=== PATIENT | male | born 1965 | race Caucasian/White ===

== ENCOUNTER 2025-10-15 08:36 | Inpatient (IN) | payer MEDICAID, OTHER ==
[~2025-10-15] VITALS: Ht 172.7 cm; Wt 84.8 kg
[2025-10-15 08:44] VITALS: O2SAT 98
[2025-10-15 10:02] LABS: CREATININE 1.5 mg/dL (0.6-1.3)
[2025-10-15 10:03] LABS: UREA NITROGEN BLOOD 24.0 mg/dL (9-23)
[2025-10-15 10:09] LABS: BASOPHILS % 0.2 % (0.0-2.0); EOSINOPHILS % 0.2 % (0.0-5.0); HEMATOCRIT. 42.1 % (42.0-52.0); HEMOGLOBIN. 13.9 g/dL (14.0-18.0); LYMPHOCYTES % 8.4 % (20.0-50.0); MEAN PLATELET VOLUME 8.6 fl (7.4-10.4); MONOCYTES % 7.6 % (2.0-8.0); NEUTROPHILS % 83.6 % (40.0-76.0); PLATELET 214 x1000/uL (130-400); RED BLOOD CELL COUNT 4.85 mill/uL (4.7-6.1); RED CELL DISTRIBUTION WIDTH 13.9 % (11.6-14.6)
[2025-10-15] MEDS ORDERED: AMPICILLIN SOD/SULBACTAM NA 3 G in SODIUM CHLORIDE 0.9% 100 ML IV STA (10:20)
[2025-10-15] MEDS: SODIUM CHLORIDE 0.9% (SEPSIS BOLUS) IV ONE (10:56)
[2025-10-15] MEDS: AMPICILLIN SOD/SULBACTAM NA 3 G in SODIUM CHLORIDE 0.9% 100 ML IV NR (11:20)
[2025-10-15] MEDS: VANCOMYCIN 1G PREMIX 200 ML IV ONE (12:50)
[2025-10-15 16:00] VITALS: BP 155/84; PULSE 104; RESP 20; TEMP 38.5; O2SAT 97
[2025-10-15] MEDS ORDERED: DEXTROSE 50% WATER 50ML SYRINGE IV PRN (17:00)
[2025-10-15] MEDS: BLOOD SUGAR DIAGNOSTIC STRIP TEST SCH (17:00)
[2025-10-15] MEDS ORDERED: IPRATROPIUM/ALBUTEROL 0.5-3(2.5)MG/3ML NEB HHN PRN (17:00)
[2025-10-15] MEDS: INSULIN LISPRO 100 UNITS/ML SUBCUT SCH (17:30)
[2025-10-15 20:00] VITALS: BP 143/85; PULSE 101; RESP 18; TEMP 36.9; O2SAT 97
[2025-10-15] MEDS: VANCOMYCIN 750MG PREMIX 150 ML IV SCH (20:30)
[2025-10-15] MEDS: HYDROCODONE/ACETAMINOPHEN 5/325MG TABLET PO PRN (22:59)
[2025-10-15] MEDS: ZOLPIDEM TARTRATE 5MG TABLET PO PRN (22:59)
[2025-10-16] VITALS (7 sets, daily range): BP systolic 112–139; BP diastolic 70–84; PULSE 77–101; RESP 13–19; TEMP 36.1–36.9184; O2SAT 95–99
[2025-10-16] MEDS: PIPERACILLIN/TAZO 3.375G/50ML 50 ML IV SCH (01:46)
[2025-10-16 08:04] LABS: CREATININE 1.4 mg/dL (0.6-1.3)
[2025-10-16 08:05] LABS: UREA NITROGEN BLOOD 19.0 mg/dL (9-23)
[2025-10-16 08:16] LABS: BASOPHILS % 0.3 % (0.0-2.0); EOSINOPHILS % 1.0 % (0.0-5.0); HEMATOCRIT. 37.7 % (42.0-52.0); HEMOGLOBIN. 12.5 g/dL (14.0-18.0); LYMPHOCYTES % 13.0 % (20.0-50.0); MEAN PLATELET VOLUME 8.7 fl (7.4-10.4); MONOCYTES % 8.7 % (2.0-8.0); NEUTROPHILS % 77.0 % (40.0-76.0); PLATELET 189 x1000/uL (130-400); RED BLOOD CELL COUNT 4.36 mill/uL (4.7-6.1); RED CELL DISTRIBUTION WIDTH 13.6 % (11.6-14.6)
[2025-10-16] MEDS: ONDANSETRON HCL 4MG/2ML INJ IV PRN (08:42)
[2025-10-16 10:48] LABS: CLARITY URINE CLEAR (CLEAR); COLOR URINE YELLOW (YELLOW); GLUCOSE URINE 3+ (NEGATIVE); KETONES URINE 1+ (NEGATIVE); LEUKOCYTE ESTERASE URINE NEGATIVE (NEGATIVE); NITRITE URINE NEGATIVE (NEGATIVE); OCCULT BLOOD URINE NEGATIVE (NEGATIVE); PH URINE 5.0 (4.5-8.0); PROTEIN URINE 2+ (NEGATIVE); SPECIFIC GRAVITY URINE 1.034 (1.005-1.030); UROBILINOGEN URINE 0.2 E.U./dL (0.2-1.0)
[2025-10-16 11:00] LABS: *AMPHETAMINES SCREEN URINE NEGATIVE (NEGATIVE); *BARBITURATES SCREEN URINE NEGATIVE (NEGATIVE); *BENZODIAZEPINES SCREEN URINE NEGATIVE (NEGATIVE); *COCAINE SCREEN URINE NEGATIVE (NEGATIVE); METHADONE URINE SCREEN NEGATIVE (NEGATIVE)
[2025-10-16 11:01] LABS: CANNABINOID URINE SCREEN NEGATIVE (NEGATIVE); ECSTASY MDMA SCREEN URINE NEGATIVE (NEGATIVE); OPIATES URINE SCREEN PRESUMPTIVE POSITIVE (NEGATIVE); PHENCYCLIDINE URINE SCREEN NEGATIVE (NEGATIVE)
[2025-10-16 11:09] LABS: RBC URINE 0-2 /hpf (0-2)
[2025-10-16 11:10] LABS: SQUAMOUS EPITHELIAL CELL URINE NONE SEEN /lpf (RARE/1+)
[2025-10-16 11:12] LABS: BACTERIA URINE TRACE; WBC URINE NONE SEEN /hpf (0-2)
[2025-10-16] MEDS: INSULIN GLARGINE 100 UNITS/ML SUBCUT SCH (11:54)
[2025-10-16] MEDS: ENOXAPARIN 40MG/0.4ML SYR SUBCUT SCH (12:58)
[2025-10-16] MEDS: VANCOMYCIN 750MG PREMIX 150 ML IV SCH (20:26)
[2025-10-16] MEDS ORDERED: NALOXONE HCL 0.4MG/ML VIAL IV PRN (23:45)
[2025-10-17] VITALS: BP 142/75; PULSE 81; RESP 18; TEMP 36.2; O2SAT 94
[2025-10-17 04:00] VITALS: BP 137/77; PULSE 85; RESP 18; TEMP 36.2; O2SAT 94
[2025-10-17 08:00] VITALS: BP 149/88; PULSE 85; RESP 19; TEMP 36.4; O2SAT 97
[2025-10-17 08:23] LABS: CREATININE 1.1 mg/dL (0.6-1.3); UREA NITROGEN BLOOD 18 mg/dL (9-23)
[2025-10-17 08:24] LABS: PROTEIN TOTAL 6.0 g/dL (6.0-8.3)
[2025-10-17 08:25] LABS: ASPARTATE AMINOTRANSFERASE 17 IU/L (<34); BILIRUBIN DIRECT 0.1 mg/dL (<=3.0)
[2025-10-17 08:26] LABS: BASOPHILS % 0.3 % (0.0-2.0); BILIRUBIN TOTAL 0.5 mg/dL (0.1-1.0); EOSINOPHILS % 1.7 % (0.0-5.0); HEMATOCRIT. 37.8 % (42.0-52.0); HEMOGLOBIN. 12.7 g/dL (14.0-18.0); LYMPHOCYTES % 19.3 % (20.0-50.0); MEAN PLATELET VOLUME 8.4 fl (7.4-10.4); MONOCYTES % 8.3 % (2.0-8.0); NEUTROPHILS % 70.4 % (40.0-76.0); PHOSPHORUS 3.1 mg/dL (2.5-4.9); PLATELET 202 x1000/uL (130-400); RED BLOOD CELL COUNT 4.37 mill/uL (4.7-6.1); RED CELL DISTRIBUTION WIDTH 13.6 % (11.6-14.6)
[2025-10-17] MEDS: DOCUSATE SODIUM 100MG CAPSULE PO PRN (08:34)
[2025-10-17 12:00] VITALS: BP 143/84; PULSE 78; RESP 16; TEMP 36.7; O2SAT 97
[2025-10-17 16:00] VITALS: BP 134/82; PULSE 83; RESP 19; TEMP 36.4; O2SAT 97
[2025-10-17 20:00] VITALS: BP 138/80; PULSE 81; RESP 18; TEMP 36.6; O2SAT 96
[2025-10-17] MEDS: VANCOMYCIN 1G PREMIX 200 ML IV SCH (21:03)
[2025-10-18] VITALS: BP 140/80; PULSE 80; RESP 18; TEMP 36.7; O2SAT 98
[2025-10-18 04:00] VITALS: BP 142/79; PULSE 78; RESP 18; TEMP 36.6; O2SAT 97
[2025-10-18 08:00] VITALS: BP 130/76; PULSE 86; RESP 17; TEMP 36.2; O2SAT 94
[2025-10-18 11:19] LABS: BASOPHILS % 0.5 % (0.0-2.0); EOSINOPHILS % 1.4 % (0.0-5.0); HEMATOCRIT. 37.9 % (42.0-52.0); HEMOGLOBIN. 12.8 g/dL (14.0-18.0); LYMPHOCYTES % 17.9 % (20.0-50.0); MEAN PLATELET VOLUME 8.4 fl (7.4-10.4); MONOCYTES % 8.4 % (2.0-8.0); NEUTROPHILS % 71.8 % (40.0-76.0); PLATELET 240 x1000/uL (130-400); RED BLOOD CELL COUNT 4.44 mill/uL (4.7-6.1); RED CELL DISTRIBUTION WIDTH 13.6 % (11.6-14.6)
[2025-10-18 12:00] VITALS: BP 135/85; PULSE 81; RESP 18; TEMP 36.9; O2SAT 98
[2025-10-18 12:04] LABS: CREATININE 1.2 mg/dL (0.6-1.3); UREA NITROGEN BLOOD 15 mg/dL (9-23)
[2025-10-18 12:05] LABS: PROTEIN TOTAL 6.0 g/dL (6.0-8.3)
[2025-10-18 12:06] LABS: ASPARTATE AMINOTRANSFERASE 14 IU/L (<34); BILIRUBIN DIRECT 0.1 mg/dL (<=3.0); PHOSPHORUS 3.9 mg/dL (2.5-4.9)
[2025-10-18 12:07] LABS: BILIRUBIN TOTAL 0.5 mg/dL (0.1-1.0)
[2025-10-18 16:00] VITALS: BP 132/82; PULSE 79; RESP 17; TEMP 36.7; O2SAT 97
[2025-10-18 20:00] VITALS: BP 127/78; PULSE 76; RESP 18; TEMP 36.8; O2SAT 96
[2025-10-19] VITALS (7 sets, daily range): BP systolic 122–148; BP diastolic 72–86; PULSE 71–85; RESP 16–19; TEMP 36.4–38.3; O2SAT 97–98
[2025-10-19 07:36] LABS: BASOPHILS % 0.5 % (0.0-2.0); EOSINOPHILS % 1.4 % (0.0-5.0); HEMATOCRIT. 42.0 % (42.0-52.0); HEMOGLOBIN. 14.2 g/dL (14.0-18.0); LYMPHOCYTES % 25.1 % (20.0-50.0); MEAN PLATELET VOLUME 8.2 fl (7.4-10.4); MONOCYTES % 9.3 % (2.0-8.0); NEUTROPHILS % 63.7 % (40.0-76.0); PLATELET 275 x1000/uL (130-400); RED BLOOD CELL COUNT 4.91 mill/uL (4.7-6.1); RED CELL DISTRIBUTION WIDTH 13.6 % (11.6-14.6)
[2025-10-19 07:38] LABS: CREATININE 1.2 mg/dL (0.6-1.3); UREA NITROGEN BLOOD 15 mg/dL (9-23)
[2025-10-19 07:41] LABS: PHOSPHORUS 3.8 mg/dL (2.5-4.9)
[2025-10-19] MEDS: ACETAMINOPHEN 325MG TABLET PO PRN ×2 (09:17→21:04)
[2025-10-20] VITALS: BP 136/88; PULSE 82; RESP 16; TEMP 36.7; O2SAT 97
[2025-10-20 04:00] VITALS: BP 135/78; PULSE 76; RESP 18; TEMP 37.6; O2SAT 98
[2025-10-20 08:10] VITALS: BP 137/74; PULSE 77; RESP 20; TEMP 36.6; O2SAT 97
[2025-10-20 10:35] LABS: BASOPHILS % 0.5 % (0.0-2.0); EOSINOPHILS % 1.6 % (0.0-5.0); HEMATOCRIT. 39.5 % (42.0-52.0); HEMOGLOBIN. 13.2 g/dL (14.0-18.0); LYMPHOCYTES % 18.1 % (20.0-50.0); MEAN PLATELET VOLUME 8.1 fl (7.4-10.4); MONOCYTES % 7.4 % (2.0-8.0); NEUTROPHILS % 72.4 % (40.0-76.0); PLATELET 269 x1000/uL (130-400); RED BLOOD CELL COUNT 4.60 mill/uL (4.7-6.1); RED CELL DISTRIBUTION WIDTH 13.5 % (11.6-14.6)
[2025-10-20 10:40] LABS: CREATININE 1.2 mg/dL (0.6-1.3); UREA NITROGEN BLOOD 14 mg/dL (9-23)
[2025-10-20 10:42] LABS: PHOSPHORUS 3.5 mg/dL (2.5-4.9)
[2025-10-20 13:30] VITALS: BP 129/72; PULSE 68; RESP 16; TEMP 36.6; O2SAT 100
[2025-10-20 16:00] VITALS: BP 152/92; PULSE 89; RESP 20; TEMP 36.6; TEMP 37.2; O2SAT 97
[2025-10-20 20:00] VITALS: BP 134/76; PULSE 78; RESP 18; TEMP 36.7; O2SAT 98
[2025-10-21] VITALS: BP 130/72; PULSE 74; RESP 16; TEMP 36.6; O2SAT 96
[2025-10-21 04:00] VITALS: BP 140/86; PULSE 78; RESP 16; TEMP 36.8; O2SAT 96
[2025-10-21 07:22] LABS: BASOPHILS % 0.6 % (0.0-2.0); EOSINOPHILS % 2.1 % (0.0-5.0); HEMATOCRIT. 37.4 % (42.0-52.0); HEMOGLOBIN. 12.7 g/dL (14.0-18.0); LYMPHOCYTES % 23.6 % (20.0-50.0); MEAN PLATELET VOLUME 7.8 fl (7.4-10.4); MONOCYTES % 9.1 % (2.0-8.0); NEUTROPHILS % 64.6 % (40.0-76.0); PLATELET 253 x1000/uL (130-400); RED BLOOD CELL COUNT 4.41 mill/uL (4.7-6.1); RED CELL DISTRIBUTION WIDTH 13.2 % (11.6-14.6)
[2025-10-21 08:00] VITALS: BP 123/77; PULSE 86; RESP 16; TEMP 36.8; O2SAT 97
[2025-10-21 08:25] LABS: CREATININE 1.2 mg/dL (0.6-1.3)
[2025-10-21 08:26] LABS: UREA NITROGEN BLOOD 17 mg/dL (9-23)
[2025-10-21 08:28] LABS: PHOSPHORUS 3.5 mg/dL (2.5-4.9)
[2025-10-21 12:00] VITALS: BP 130/76; PULSE 80; RESP 16; TEMP 36.6; O2SAT 96
[2025-10-21 16:00] VITALS: BP 139/79; PULSE 82; RESP 18; TEMP 37.4; O2SAT 96
[2025-10-21 20:35] VITALS: BP 141/83; PULSE 75; RESP 18; TEMP 36.5; O2SAT 94
[2025-10-22] VITALS: BP 140/82; PULSE 79; RESP 18; TEMP 36.4; O2SAT 94
[2025-10-22 04:00] VITALS: BP 138/86; PULSE 85; RESP 18; TEMP 36.4; O2SAT 95
[2025-10-22 08:00] VITALS: BP 128/68; PULSE 80; RESP 20; TEMP 36.2; O2SAT 98
[2025-10-22] MEDS ORDERED: LIDOCAINE HCL 1% 10 MG/ML 10ML VIAL ONE (10:07)
[2025-10-22 12:00] VITALS: BP 173/96; PULSE 82; RESP 20; TEMP 36.3; O2SAT 98
[2025-10-22 16:00] VITALS: BP 149/77; PULSE 74; RESP 20; TEMP 36.3; O2SAT 99
[2025-10-22 20:00] VITALS: BP 147/78; PULSE 77; RESP 18; TEMP 37.6; O2SAT 98
[2025-10-23] VITALS: BP 141/78; PULSE 75; RESP 16; TEMP 37.2; O2SAT 95
[2025-10-23 04:00] VITALS: BP 145/78; PULSE 78; RESP 18; TEMP 37.2; O2SAT 100
[2025-10-23 07:15] LABS: BASOPHILS % 0.6 % (0.0-2.0); EOSINOPHILS % 1.7 % (0.0-5.0); HEMATOCRIT. 40.0 % (42.0-52.0); HEMOGLOBIN. 13.4 g/dL (14.0-18.0); LYMPHOCYTES % 20.8 % (20.0-50.0); MEAN PLATELET VOLUME 7.8 fl (7.4-10.4); MONOCYTES % 8.9 % (2.0-8.0); NEUTROPHILS % 68.0 % (40.0-76.0); PLATELET 275 x1000/uL (130-400); RED BLOOD CELL COUNT 4.67 mill/uL (4.7-6.1); RED CELL DISTRIBUTION WIDTH 13.6 % (11.6-14.6)
[2025-10-23 07:20] LABS: CREATININE 1.2 mg/dL (0.6-1.3)
[2025-10-23 07:21] LABS: UREA NITROGEN BLOOD 22 mg/dL (9-23)
[2025-10-23 07:23] LABS: PHOSPHORUS 3.6 mg/dL (2.5-4.9)
[2025-10-23 08:00] VITALS: BP 151/85; PULSE 78; RESP 19; TEMP 36.9; O2SAT 99
[2025-10-23 12:00] VITALS: BP 152/84; PULSE 78; RESP 19; TEMP 36.9; O2SAT 98
[2025-10-23 16:00] VITALS: BP 150/82; PULSE 80; RESP 19; TEMP 36.8; O2SAT 98
[2025-10-23 20:00] VITALS: BP 153/75; PULSE 75; RESP 18; TEMP 36.5; O2SAT 96
[2025-10-24] VITALS: BP 175/86; PULSE 72; RESP 18; TEMP 36.2; O2SAT 95
[2025-10-24 04:00] VITALS: BP 167/86; PULSE 78; RESP 18; TEMP 36.3; O2SAT 95
[2025-10-24] MEDS: CLONIDINE 0.1MG TABLET PO PRN (04:22)
[2025-10-24 08:00] VITALS: BP 143/88; PULSE 76; RESP 19; TEMP 36.7; O2SAT 99
[2025-10-24] MEDS ORDERED: AMLO5TAB88 MT (08:55)
[2025-10-24] MEDS ORDERED: LANTUSUD SUBCUT (08:55)
[2025-10-24] MEDS ORDERED: METF-414 MT (08:55)
[2025-10-24] MEDS: AMLODIPINE 5MG TABLET PO SCH (09:38)
[2025-10-24] MEDS: CEFTRIAXONE 2GM/50ML 50 ML IV SCH (09:47)
[2025-10-24 12:00] VITALS: BP 136/80; PULSE 74; RESP 18; TEMP 36.7; O2SAT 98
[2025-10-24 13:21] VITALS: BP 154/84; PULSE 71; RESP 16; TEMP 97.5
== END 2025-10-24 14:50 | disposition home health service (06) | DRG 720 ==
LOC: ER 08:36 → 4WST 13:15 → EDBEDREQTM 13:19 → EDBEDREQ 13:19
PROVIDERS: ADMIT Internal Medicine; ATTEND Internal Medicine
PROC: 02HV33Z Insertion of Infusion Device into Superior Vena Cava, Percutaneous Approach (ICD-10-PCS; principal; 2025-10-22)
PROC: B548ZZA Ultrasonography of Superior Vena Cava, Guidance (ICD-10-PCS; 2025-10-22)
DX: A41.9 Sepsis, unspecified organism (principal); M00.9 Pyogenic arthritis, unspecified; M86.8X7 Other osteomyelitis, ankle and foot; D64.9 Anemia, unspecified; E11.22 Type 2 diabetes mellitus with diabetic chronic kidney disease; N17.9 Acute kidney failure, unspecified; B95.5 Unspecified streptococcus as the cause of diseases classified elsewhere; I12.9 Hypertensive chronic kidney disease with stage 1 through stage 4 chronic kidney disease, or unspecified chronic kidney disease; E11.69 Type 2 diabetes mellitus with other specified complication; E11.621 Type 2 diabetes mellitus with foot ulcer; E87.5 Hyperkalemia; L97.519 Non-pressure chronic ulcer of other part of right foot with unspecified severity; E78.5 Hyperlipidemia, unspecified; N18.2 Chronic kidney disease, stage 2 (mild); Z79.4 Long term (current) use of insulin; Z82.49 Family history of ischemic heart disease and other diseases of the circulatory system
CPT/HCPCS: 36415; 36573; 71045; 73630; 73721; 76770; 80048; 80076; 80202; 80305; 81003; 82550; 82962; 83036; 83605; 83735; 84100; 84145; 85025; 85651; 86141; 93923; 93970; 97161; 99285; C1725; J0295; J0696; J1650; J1815; J2003; J2405; J2543; J3373; J7030; J7050